=== PATIENT | female | born 1995 | race Caucasian/White ===

== ENCOUNTER 2016-10-26 22:20 | Inpatient (IN) | payer OTHER ==
[~2016-10-26] VITALS: Ht 162.6 cm; Wt 79.0 kg
[2016-10-26 22:44] VITALS: BP 110/75; PULSE 150; RESP 18; O2SAT 99
--- NOTE | 2016-10-26 23:54 | ED.REPORT ---
HPI-Rash / Abscess Date of Service Oct 26, 2016 ED Provider: Al Terrell MD A 21 year old female with a history of heroin substance abuse presents to the ED complaining of abscess on right butt cheek. The abscess just started to drain. The abscess is in area where she injects heroin. Her last Heroin use was 8 hours ago. She is interested in Suboxone. Nursing Notes Stated Complaint: SKIN RASH/ ABSCESS Chief Complaint: Skin Rash/Abscess Nursing Notes Reviewed: Yes Allergies: Coded Allergies: No Known Allergies (Unverified , 10/26/16) No Active Prescriptions or Reported Meds General Time Seen by MD: 23:53 Chief Complaint Abscess Hx Obtained From: Patient Arrived By: Walk-in Onset Occurred: Onset unknown Symptom Duration: Since onset Severity: Current: Severe Severity: Maximum: Severe Recent Healthcare: No recent doctor visit Similar Sx Previous: No Past Medical History Past Medical History She has used suboxone in the past. Reports no known medication allergies. Past Surgical History none reported. Social History Patient injects heroin. She does not inject into arms. Last use was 8 hours ago. She uses .4 per day. Last got out of [facility] 8 months ago. Ambulatory Status Independent Review of Systems Review of Systems Note: abscess on right butt cheek. Constitutional: Denies: Chills, Fever Complete sys rev & neg: except as marked. Physical Exam Initial Vital Signs Vital Signs (First) Date Time Temp Pulse Resp B/P Pulse Ox O2 Delivery O2 Flow Rate FiO2 10/26/16 22:44 37.0 150 18 110/75 99 Room Air Initial VS: Reviewed, Vital signs abnormal General/Constitutional: Awake, Alert Distress / Hydration: Positive: Distress moderate Appearance / Presentation: Positive: Pale Skin: Warm Patient has large, 6x10cm right buttock abscess with extension anteriorly into perineum. Patient is diaphoretic. Head / Eyes: Atraumatic, Normocephalic, PERRL, EOMI Respiratory / Chest: Atraumatic, Breath sounds NL, Breath sounds = bilat, No respiratory distress, No rales, No rhonchi, No wheezing Cardiovascular: Regular rhythm, Heart sounds NL, No gallop, No murmurs, No rubs Heart Rate / Rhythm: Positive: Tachycardia Upper Extremity / MS: No swelling, No edema Neurologic: Oriented X3, Speech NL Abdomen: No guarding, No rebound Interpretation & Diagnostics Lab Results Interpretation Result Diagram: 10/27/16 0040 10/27/16 0040 Test 10/27/16 00:40 White Blood Count 23.7th/mm3 (3.8-10.1) Red Blood Count 3.86mil/mm3 (3.90-5.20) Hemoglobin 10.9g/dL (12.0-15.6) Hematocrit 33.1% (35.0-46.0) Mean Corpuscular Volume 85.8fL (81-100) Mean Corpuscular Hemoglobin 28.2pg (27.0-35.0) Mean Corpuscular Hemoglobin Concent 32.9% (32.0-37.0) Red Cell Distribution Width 12.7% (12.3-15.4) Platelet Count 250bil/L (150-400) Neutrophils (%) (Auto) 78.0% (40-74) Lymphocytes (%) (Auto) 11.3% (14-46) Monocytes (%) (Auto) 8.9% (4-12) Eosinophils (%) (Auto) 0.8% (0-5) Basophils (%) (Auto) 0.2% (0-3) Sodium Level 135mEq/L (134-144) Potassium Level 4.3mEq/L (3.5-5.2) Chloride Level 98mEq/L (97-108) Carbon Dioxide Level 24mmol/L (18-29) Blood Urea Nitrogen 11mg/dL (6-20) Creatinine 0.50mg/dL (0.57-1.00) Estimat Glomerular Filtration Rate 221mL/min (>59) Glucose Level 136mg/dL (60-99) Calcium Level 9.3mg/dL (8.5-10.1) Magnesium Level 1.8mg/dL (1.6-2.6) Total Bilirubin 0.3mg/dL (0.0-1.2) Aspartate Amino Transf (AST/SGOT) 39U/L (0-50) Alanine Aminotransferase (ALT/SGPT) 40U/L (0-32) Alkaline Phosphatase 142U/L (25-150) Total Protein 6.8g/dL (6.4-8.4) Albumin 2.8g/dL (3.4-5.0) HCG Beta Subunit < 0.500mIU/mL Lab Results Interpretation: Elevated white blood count, mild anemia, upper limits normal lactic acid Procedure Notes: CT Pelvis with IV contrast IMPRESSION: Extensive inflammatory changes in the subcutaneous fat of the right buttock which extends anteriorly to involve the perineum on the right. No evidence of fluid collection. Signed by Carl Nova M.D., Radiologist 10/27/2016, 0350 Incision & Drainage Abscess Time: 02:14 Procedure Performed by: ED physician Procedures Incision & Drainage Abscess I & D Abscess: Drainage on 10x6cm butt abscess with indurated tender area with overlying ertythema. Time: 02:14 Procedure Performed by: ED physician Consent / Setup / Site Prep: Consent from patient Skin Preparation Agent: Shurclens Local Anesthesia: Lidocaine w epi 1% Procedural Sedation/Analgesia: Sedation: Versed Incised Abscess with Scalpel: #15 Pus Drained: Medium Irrigation: Yes Post-Procedure / Complications: Packing placed (plain), No complications, Condition improved, Tolerated procedure well, Patient stable Re-Eval/Medical Decision Med Decision/Clinical Course 21-year-old female who presents with evidence of sepsis related to a large abscess right buttocks. She was hydrated, cultured, and started on antibiotics . The abscess was drained, irrigated, and packed. Case was discussed with Dr. Harry Donovan and . Patient will be admitted to the hospitalist service with surgical consultation. Re-Evaluation/Progress #1: Time of Eval: 00:06 Re-Evaluation/Progress Note: Explained plan to treat abscess. Re-Evaluation/Progress #2: Time of Eval: 02:14 Re-Evaluation/Progress Note: Performed I&D on abscess. Explained plan for admission. Consultation #1: Referral / Consult Name: Kaushik Waldrop MD Consulted With: Hospitalist Call Returned at: 03:16 Note: Discussed patient case with Dr. Waldrop who wants to wait to see CT results before making a decision about the patient's admit. Consultation #2: Referral / Consult Name: Kaushik Waldrop MD Consulted With: Hospitalist Call Returned at: 03:48 Real Estate Firm Manager: Agrees with eval, Agrees with plan, Accepts admit Note: Examined CT results with Dr. Waldrop who accepts patient admit. Consultation #3: Referral / Consult Name: Harry Donovan MD Consulted With: Surgeon Real Estate Firm Manager: Will see patient, Agrees with eval, Agrees with plan Note: Discussed patient case with Dr. Donovan who will see the patient. Counseled Regarding: Diagnosis, Lab results, Need for follow-up Discharge & Departure Impression: Primary Impression: Gluteal abscess Additional Impressions: Heroin abuse Sepsis Sepsis type: sepsis due to unspecified organism Qualified Code: A41.9 - Sepsis, unspecified organism Disposition: ADMITTED TO HOSPITAL Referrals: NOPCP (PCP) Crit Care Except Billable Proc Time Spent: 30-74 minutes Services Performed: Patient management by me, Time spent at bedside, Reviewing test results, Reviewing imaging, Discussing patient care, Documentation in record Critical Care Notes: Patient with a large gluteal abscess/cellulitis and sepsis admitted to [facility] Herbert Attestation Portions of this note were transcribed by Arturo Perla. I, Dr. Terrell personally performed the history, physical exam and medical decision-making; I reviewed and confirmed the accuracy of the information in the transcribed note. Signed by: Herbert Ravi, 10/27/2016 and 0530. copies to: Al Leon MD Oct 26, 2016 23:54 Arturo Perla Oct 27, 2016 00:11
[2016-10-27] VITALS (9 sets, daily range): BP systolic 79–103; BP diastolic 30–58; PULSE 81–119; RESP 17–20; O2SAT 96–100
[2016-10-27] MEDS ORDERED: 0.9% Sodium Chloride 1,000 ML IV ONE ×2 (00:56→03:10)
[2016-10-27] MEDS ORDERED: Ondansetron 2 mg/mL 2 mL Inj IV PRN (01:00)
[2016-10-27 01:03] LABS: BASOPHILS % (AUTO) 0.2 % (0-3); EOSINOPHILS % (AUTO) 0.8 % (0-5); MONOCYTES % (AUTO) 8.9 % (4-12); Mean Corpuscular Hemoglobin 28.2 pg (27.0-35.0); Mean Corpuscular Volume 85.8 fL (81-100); Platelet Count 250 bil/L (150-400)
[2016-10-27 01:46] LABS: Magnesium 1.8 mg/dL (1.6-2.6)
[2016-10-27] MEDS ORDERED: Piperacillin-Tazo 3.375 Gm Inj 3.375 GM in Dextrose 5% Minibag Plus 50 ML IV ONE (03:10)
[2016-10-27] MEDS ORDERED: Vancomycin Dose per Pharmacist XX ONE (03:12)
[2016-10-27] MEDS ORDERED: Vancomycin Inj 1,500 MG in 0.9% Sodium Chloride 500 ML IV ONE (03:15)
[2016-10-27] MEDS ORDERED: Lactated Ringer's 1,000 ML IV ONE (04:00)
[2016-10-27] MEDS ORDERED: Alum-Mag Hydrox-Simeth 30 mL Suspension PO PRN (04:00)
[2016-10-27] MEDS ORDERED: Ondansetron 2 mg/mL 2 mL Inj IVPUSH PRN (04:00)
--- NOTE | 2016-10-27 04:11 | PCM.HPMED ---
Subjective Date of Service Oct 27, 2016 Primary Provider: Admitting Physician: Primary Care Physician: Karena Attending Physician: Chief Complaint: buttock infection History of Present Illness: 21yo lady with hx of im, iv heroin use 7-10 day hx of worsening pain, redness, swelling around upper buttock area at injection site. worse with pressure to the area. no relieving factors. last heroin use today ~6-8hours prior to admission hx of iv heroin use but lately only im. + chills. Review of Systems: Positive Review of Symptoms mentioned and elaborated on in HPI. Head: Denies H/A, trauma, loss of consciousness. Eyes: Denies visual loss, diplopia. Ears: Denies: deafness, tinnitis, discharge, pain Nose: Denies discharge, obstruction, epistaxis Mouth: Denies sores, gingival bleeding, jaw pain Neck: Denies stiffness, issues swallowing. Respiratory: Denies dyspnea, cough, sputum. Cardiovascular:Denies CP, palpitations, orthopnea, peripheral edema Gastrointestinal: Denies melena, abd pain, n/v/d Genitourinary: Denies dysuria, discharge. Skin: see hpi Musculoskeletal: see hpi Neuro: Denies numbness, tingling, weakness. Psyc: Currently denies feelings of anxiety, depression. Allergies Coded Allergies: No Known Allergies (Unverified , 10/26/16) Home Medications none PMH denies Surgical History denies Family History denies Social History Additional Information IM heroin use. hx of iv heroin use. Exam Vital Signs Vital Sign - Last Date Time Temp Pulse Resp B/P Pulse Ox O2 Delivery O2 Flow Rate FiO2 10/27/16 02:53 104 17 89/31 100 10/27/16 01:43 36.6 Room Air Intake and Output 10/26/16 10/26/16 10/27/16 Cumulative From/Thru 15:00 23:00 07:00 10/26/16 22:44 - 10/27/16 03:01 Intake Total 3000 ml 3000 ml Balance 3000 ml 3000 ml Intake IV Total 3000 ml 3000 ml Exam General: No acute distress. Awake, alert. Head: Normocephalic, atraumatic. Eyes: White sclera. Conjunctiva non-injected. Mouth & Throat: No Bleeding. No erythema, lesions, exudates visualized. Neck: No tender adenopathy. Trachea midline. Respiratory: Clear to auscultation bilaterally. Symmetric chest expansion. Regular work of breathing without use of accessory muscles. Cardiovascular: S1, S2. Regular rate and rhythm without murmurs, rubs or gallops. Pulses 2+ equal bilaterally. Abdomen: Normal bowel sounds x4 quadrants. Soft, non-tender, non-distended. Extremities: Intact. no joint effusions. no lower extremity tenderness, swelling , erythema or increased warmth. Skin: erythema, abscess, tenderness, L buttock. Neurologic: Awake, alert, oriented x3. No focal deficits. Psychiatric: Appropriate mood and affect. Cooperative. Lab and Diagnostics Result Diagram: 10/27/163910/27/1639 Assessment & Plan -- buttock, gluteal abscess -- sepsis secondary to above I and D done in er. blood, wound culture iv abx ivf. surgery evaluation -- IM Heroin abuse -- hx of iv heroin abuse -- hx of incarceration urine drug screen, hep c, hep b, hiv screening. manager social work discussed dangers of continued drug use. open to getting help going to rehab. -- f/e/n: npo -- dvt prophylaxis: differ in case of procedure today Dipso: Admit to inpt with expected length of stay > 2 midnights. Resuscitation Status: CPR: Attempt Resuscitation Kaushik Waldrop MD Oct 27, 2016 04:11
[2016-10-27] MEDS ORDERED: HYDROmorphone 1 mg/mL Inj IVPUSH PRN (04:30)
--- NOTE | 2016-10-27 05:10 | PCM.CONPHA ---
Subjective Date of Service: Oct 27, 2016 Requesting Provider: Kaushik Waldrop MD buttock infection Reason for Pharmacy Consult: Vancomycin Dosing Objective Vital Signs Date Time Temp Pulse Resp B/P Pulse Ox O2 Delivery O2 Flow Rate FiO2 10/27/16 04:26 37.1 99 17 86/33 99 Room Air 10/27/16 02:53 104 17 89/31 100 10/27/16 01:43 36.6 119 20 101/30 100 Room Air 10/26/16 22:44 37.0 150 18 110/75 99 Room Air Weight (Kilograms): 75 Height (Feet): 5 Height (Inches): 4 Test 10/27/16 00:40 10/27/16 04:45 White Blood Count 23.7th/mm3 (3.8-10.1) Red Blood Count 3.86mil/mm3 (3.90-5.20) Hemoglobin 10.9g/dL (12.0-15.6) Hematocrit 33.1% (35.0-46.0) Mean Corpuscular Volume 85.8fL (81-100) Mean Corpuscular Hemoglobin 28.2pg (27.0-35.0) Mean Corpuscular Hemoglobin Concent 32.9% (32.0-37.0) Red Cell Distribution Width 12.7% (12.3-15.4) Platelet Count 250bil/L (150-400) Neutrophils (%) (Auto) 78.0% (40-74) Lymphocytes (%) (Auto) 11.3% (14-46) Monocytes (%) (Auto) 8.9% (4-12) Eosinophils (%) (Auto) 0.8% (0-5) Basophils (%) (Auto) 0.2% (0-3) Sodium Level 135mEq/L (134-144) Potassium Level 4.3mEq/L (3.5-5.2) Chloride Level 98mEq/L (97-108) Carbon Dioxide Level 24mmol/L (18-29) Blood Urea Nitrogen 11mg/dL (6-20) Creatinine 0.50mg/dL (0.57-1.00) Estimat Glomerular Filtration Rate 221mL/min (>59) Glucose Level 136mg/dL (60-99) Calcium Level 9.3mg/dL (8.5-10.1) Magnesium Level 1.8mg/dL (1.6-2.6) Total Bilirubin 0.3mg/dL (0.0-1.2) Aspartate Amino Transf (AST/SGOT) 39U/L (0-50) Alanine Aminotransferase (ALT/SGPT) 40U/L (0-32) Alkaline Phosphatase 142U/L (25-150) Total Protein 6.8g/dL (6.4-8.4) Albumin 2.8g/dL (3.4-5.0) HCG Beta Subunit < 0.500mIU/mL Hold [place] Top Tube Received (Received) Assessment/Plan Assessment/Plan A: * Vancomycin dosing by pharmacy for 21 y/o woman with sepsis secondary to buttock abscess * She is also being started on Zosyn * Estimated CrCl for the patient is > 120 mL/min (Cockcroft & Gault) * Estimated vancomycin half-life is 7 hours and estimated Vd is 53 liters P: * Gave the patient a vancomycin loading dose of 1500 mg IV in the ED * Continue with vancomycin 1250 mg IV every 8 hours * Target a vancomycin trough range of 15 - 20 mcg/mL * Drawing a trough level prior to the fourth dose Thank you. Pharmacy will continue to follow this patient. Delfina Kenny, PharmD Delfina Kenny Oct 27, 2016 05:10
[2016-10-27] MEDS: Lactated Ringer's 1,000 ML IV SCH ×4 (06:07→22:31)
--- NOTE | 2016-10-27 08:24 | DRSVH ---
PROCEDURE: CT PELVIS WITH CONTRAST ([id number]) INDICATIONS: deep buttock abscess TECHNIQUE: After the administration of intravenous contrast, 5 mm thick sections acquired from the iliac crests to the symphysis. 5 mm coronal and sagittal reformats were acquired. For radiation dose reduction, the following was used: automated exposure control, adjustment of mA and/or kV according to patient size. COMPARISON: None. FINDINGS: Image quality: Excellent. Peritoneum and bowel: Bowel loops demonstrate normal wall thickness and caliber. No free fluid or a ir. Genitourinary: Bladder wall thickness is normal. No enlargement of uterus or ovaries identified. Nodes and vessels: No iliac, pelvic, or inguinal adenopathy by size criteria. Iliac vessels demonst rate normal size and enhancement. Bones/subcutaneous soft tissues: No suspicious bony lesions. The right buttock has increased strand ing and edematous change compared to the left extending from the level of the hip posteriorly and keith n the buttock and upper right thigh. There is thickening of the skin. The stranding extends medially to the level of the rectum. It extends laterally through the posterolateral aspect of the gluteus mus culature. It extends anteriorly across the perineum towards the labia on the right. No focal fluid co llection is identified to indicate abscess. A particle of air may be in the subcutaneous tissues on s eries 8 image 56. Miscellaneous: No inguinal hernias. IMPRESSION: 1. Extensive inflammatory changes of the right buttock which extends into the perineum and around the right side of the anus laterally to the lateral aspect of the hip superiorly to the level of the hip joint and inferiorly in the subcutaneous tissues of the upper right thigh. 2. No evidence of abscess collection is seen. A particle of air is seen in the subcutaneous tissues o f the buttocks. Dictated by: Dorian Stinson M.D. on 10/27/2016 at 8:07 Approved by: Dorian Stinson M.D. on 10/27/2016 at 8:22
[2016-10-27] MEDS: Vancomycin Dose per Pharmacist XX SCH (08:30)
--- NOTE | 2016-10-27 11:02 | NUR ---
Social Work Note: Screen Note Data& Assessment: EMR reviewed. Felix Barrett is a 21 year old female admitted on 10/27/2016 for right buttock abscess and sepsis. Pt has [employer] insurance coverage. Pt lives in [place] and is independent at baseline. Per MD in morning rounds, pt abscess is an infected injection site from IV heroin use. Pt was positive for opiates and amphetamines. SW to follow up with pt regarding CD assessment and resources when appropriate. SW to also follow ID evaluation and recommendations to r/o IV abx. No other discharge needs identified at this time. SW to continue to follow. Plan: Anticipated discharge home via pov when medically ready. SW to follow up with pt regarding CD assessment and resources when appropriate. SW to also follow ID evaluation and recommendations to r/o IV abx. No other discharge needs identified at this time. SW to continue to follow. ZHANE Morales
[2016-10-27] MEDS: Piperacillin-Tazo 3.375 Gm Inj 3.375 GM in Dextrose 5% Minibag Plus 50 ML IV SCH ×2 (11:34→18:48)
--- NOTE | 2016-10-27 12:11 | NUR ---
Social Work: Chemical Dependency Evaluation Current Situation: 21 year old female admitted for Right Buttock Abscess, sepsis. FELT COVERER met with pt at bedside to complete CD assessment. Pt is very irritable stating she is currently going through withdrawal and upset that she has not yet received Suboxone. History of CD Use: Pt states that she has been using opiates since she was 14 which started with abuse of prescription pain medication. Pt has been using IV heroin for approximately two years and reports that she "muscles" heroin. Pt reports that her last use was approximately 24 hours ago. Pt symptoms of withdrawal include "irritability" and flu-like symptoms. Pt has never participated in treatment and does not express interest in engaging in treatment after discharge. Pt denies any long periods of sobriety. MH History: Pt denies any mental health history or thoughts of suicide, homicide or auditory or visual hallucinations. Family History: Pt declined to provide information and stated "what does it matter?" Natural Supports: Pt states her mom is somewhat supportive. She does not identify anyone else as supports. Perceptions of Use/Consequences: Pt seems to understand that her hospitalization is directly related to her IV substance use however does not express outward desires to change post-discharge. Motivation for Treatment/Resources: Pt is not connected with any outpatient providers. Pt expressed interest in getting Suboxone during admission but not at time of discharge. Pt declined information from FELT COVERER about [facility] (Suboxone provider) [facility] and other community services. Pt declined a CDP bedside assessment through [facility]. Disposition: Anticipate pt to likely discharge home when medically stable; ID is following for abx recommendations; cultures are still pending. FELT COVERER to r/o intermediate accountant IV ABX for pt. FELT COVERER contact information provided to pt and informed her to call or request social work if she changed her mind about treatment. ZHANE Castro
[2016-10-27] MEDS: Vancomycin Inj 1,250 MG in 0.9% Sodium Chloride 250 ML IV SCH ×2 (14:07→22:12)
--- NOTE | 2016-10-27 14:12 | CONS ---
[address] [address] CONSULTATION REPORT PATIENT: LEA ROJAS : 1995 MR#: [id number] ADMIT: 10/27/2016 JOB ID: [id number] DATE OF SERVICE: 10/27/2016 SURGICAL CONSULTATION: CHIEF COMPLAINT: Right buttock pain. HISTORY OF PRESENT ILLNESS: The patient is a 21-year-old woman with an admitted history of muscling methamphetamine, who last injected into her right buttock approximately one month ago. Over the past 10 days, she developed increasing pain and swelling in the area of prior injection. She presented to the emergency department for evaluation. She denies fevers or chills. By the time she arrived in the emergency department, she had spontaneous drainage from the skin in the area. PAST MEDICAL HISTORY: 1. Methamphetamine and heroin abuse. 2. History of Suboxone use. PAST SURGICAL HISTORY: None. MEDICATIONS: None. ALLERGIES: No known drug allergies. SOCIAL HISTORY: Methamphetamine and heroin abuse. Denies alcohol use. She [facility]. FAMILY HISTORY: Noncontributory. REVIEW OF SYSTEMS: A 10-point review of systems is negative except as described in history of present illness. PHYSICAL EXAMINATION: Body mass index 28.9, temperature 36.6, pulse 95, blood pressure 79/39, saturation 98% on room air. General: She is resting in bed in no acute distress on her left side. HEENT: Sclerae are anicteric. Mucous membranes are moist. Neck: No lymphadenopathy. Chest is clear. Heart: Regular rate and rhythm. No murmurs. Skin: The right buttock was evaluated. The buttock is soft. There is minimal erythema over a 5 cm area around the incision site. The incision is packed with Nu-Gauze which is draining purulent fluid. There is no crepitus. There is minimal induration. Extremities: No edema. Neuro: No deficits. Psychiatric: Affect is appropriate. LABORATORIES: White blood cell count 22.7, hematocrit 33.1, platelets 250. Creatinine 0.50, glucose 136, lactate 1.1. IMAGING: CT of the pelvis shows inflammatory changes of the right buttock extending around the right side of the anus. There is no abscess seen. There is a small air bubble in the subcutaneous tissue of the buttocks. ASSESSMENT/PLAN: A 21-year-old woman status post incision and drainage of a right buttock abscess from heroin and/or methamphetamine injection. The collection appears to be adequately drained for now. She should undergo daily dressing changes, packing the area with 1/4-inch NuGauze and covering the scan with ABD pads. It is okay for her to shower. She can have a general diet. If it looks like she needs additional debridement, that will be done in the operating room. I will reassess for that tomorrow morning. Broad-spectrum antibiotics will be continued.
[2016-10-27] MEDS ORDERED: Lidocaine 2% 5 mL Topical Jelly TOPICAL PRN (15:00)
--- NOTE | 2016-10-27 15:40 | PCM.PNMED ---
Subjective Date of Service Oct 27, 2016 Subjective Patient's pain is ongoing problem and likely be worsened. She admits to using heroin up to every 3 hours whenever she can get it. Starting to go through withdrawals now. She denies chest pain, nausea vomiting. Right buttock pain is exacerbated. She states that she would like to quit using heroin. Exam Vital Signs Vital Sign - Last Date Time Temp Pulse Resp B/P Pulse Ox O2 Delivery O2 Flow Rate FiO2 10/27/16 12:27 36.8 95 18 98/58 96 Room Air Intake and Output 10/26/16 10/26/16 10/27/16 Cumulative From/Thru 15:00 23:00 07:00 10/26/16 22:44 - 10/27/16 06:25 Intake Total 4000 ml 4000 ml Output Total 800 ml 800 ml Balance 3200 ml 3200 ml Intake Oral 0 ml 0 ml IV Total 4000 ml 4000 ml Output Urine Total 800 ml 800 ml Exam General: Alert, Oriented X3, NAD Head: Normocephalic, atraumatic Eyes: RUDI, EOMI, no scleral Icterus Chest: clear to auscultation B/L, no wheezing rales or rhonchi Heart: Regular rate and rhythm. Normal S1, S2, no murmurs noted Abdomen: soft, non-tender. Bowel sounds are normoactive. No guarding or rebound. Extremities: no cyanosis, clubbing or edema. Right buttock bandage clean and dry IVs and Medications Medications Reviewed: Medications were reviewed in detail Lab and Diagnostics Result Diagram: 10/27/16 0040 10/27/16 0040 Assessment & Plan buttock, gluteal abscess secondary to IM heroin use -Continue vancomycin and Zosyn -Awaiting cultures -I and D done in er. -Surgery consulted Sepsis secondary to above: -Continue antibiotics as above IV drug use: -Counseled the patient on sensation of her wound. Patient would like to receive resources on addiction treatment and Suboxone therapy. -Case management is aware -Consider Suboxone therapy initiation -- IM Heroin abuse -- hx of iv heroin abuse -- hx of incarceration --urine drug screen, hep c, hep b, hiv screening. CODE STATUS: Full code DVT prophylaxis: Start Lovenox Disposition: Pending hospital course. Resuscitation Status: CPR: Attempt Resuscitation Jayro Zambrano DO Oct 27, 2016 15:40
[2016-10-27] MEDS: HYDROcodone-APAP 10-325 mg PO PRN ×2 (16:29→22:13)
[2016-10-27] MEDS: LORazepam 1 mg Tablet PO PRN ×2 (16:29→22:13)
--- NOTE | 2016-10-27 18:43 | NUR ---
Wound Dressing Change/Withdraw Dressing changed twice, packing gauze and ABD pad used. Dressing soaked through both times. Lidocain jelly ordered to make packing process less painful. Cardiac: Pt denies CP, tele SR 80s-90S, pt is hypotensive, SBP never > 100 this shift Resp: Pt denies dyspnea, Spo2 99% on RA GI/: Pt denies N/V/D Neuro: A&OX3, BOWMAN, Pt is sleeping often this AM. Right buttock is painful with movement Tordol is somewhat effective for pain. Pt has increased agitation when awake and states "I don't THINK I'm starting to withdraw, I AM WITHDRAWING". Pt is pleasant at baseline, ativan and hydrocodone ordered this afternoon.
[2016-10-27] MEDS: 0.9% Sodium Chloride 1,000 ML IV SCH (23:20)
[2016-10-28] VITALS (8 sets, daily range): BP systolic 105–126; BP diastolic 57–78; PULSE 68–105; RESP 16–20; O2SAT 97–99
[2016-10-28] MEDS: Piperacillin-Tazo 3.375 Gm Inj 3.375 GM in Dextrose 5% Minibag Plus 50 ML IV SCH ×3 (02:34→18:26)
[2016-10-28] MEDS: HYDROcodone-APAP 10-325 mg PO PRN ×4 (02:49→18:43)
[2016-10-28] MEDS ORDERED: Vancomycin Serum Trough XX ONE (04:00)
[2016-10-28 04:09] LABS: BASOPHILS % (AUTO) 0.3 % (0-3); EOSINOPHILS % (AUTO) 2.7 % (0-5); MONOCYTES % (AUTO) 6.5 % (4-12); Mean Corpuscular Hemoglobin 28.1 pg (27.0-35.0); Mean Corpuscular Volume 86.3 fL (81-100); NEUTROPHILS % (AUTO) 67.4 % (40-74); Platelet Count 226 bil/L (150-400)
--- NOTE | 2016-10-28 05:16 | PCM.PHAPRO ---
Progress Date of Service: Oct 28, 2016 buttock infection Vancomycin dosing by pharmacy for 21 y/o woman with sepsis secondary to buttock infection O: * The patient is receiving vancomycin 1250 mg IV every 8 hours * Vancomycin trough level of 14.4 mcg/mL prior to the fourth dose * SCr of 0.49 mg/dL on 10/28 * Cultures are pending A: * The trough is slightly lower than target, but levels will likely increase as the vancomycin reaches steady-state * SCr appears stable so far P: * Continue the current dose of vancomycin * Continue to target a trough range of 15 - 20 mcg/mL * Draw another trough level after several more doses Thank you. Pharmacy will continue to follow this patient. Delfina Kenny, PharmD Delfina Kenny Oct 28, 2016 05:16
[2016-10-28] MEDS: 0.9% Sodium Chloride 1,000 ML IV SCH ×3 (05:58→21:48)
[2016-10-28] MEDS: Vancomycin Inj 1,250 MG in 0.9% Sodium Chloride 250 ML IV SCH ×3 (05:58→21:48)
--- NOTE | 2016-10-28 06:39 | NUR ---
Dressing change Pt uncooperative with dressing change. Pt explained the need for full dressing change as wound is saturated with blood with a foul odor. Pt non complaint. Outer dressing, pt agreed to be changed but not the packing. Pt agitated and anxious over having a wound and feeling pain d/t it. Pain control given q4h as ordered PRN.
[2016-10-28] MEDS: Vancomycin Dose per Pharmacist XX SCH (08:30)
--- NOTE | 2016-10-28 10:08 | PROG NOTE ---
[address] [address] PROGRESS NOTE PATIENT: FELIX ROJAS : 1995 MR#: [id number] ADMIT: 10/27/2016 JOB ID: [id number] DATE: 10/28/2016 SUBJECTIVE: Felix is seen in followup. She had no acute events overnight. She is requesting additional pain medication. Her wound was packed last night. OBJECTIVE: Temperature 36.5, pulse 91, blood pressure 107/57, saturation 99% on room air. In general, she is resting in bed on her side, in no acute distress. Skin the right buttock wound was evaluated. There is no significant erythema or induration of the skin. The wound is packed with NuGauze, but is draining moderate to large amount of purulent and serosanguineous fluid. The outer dressing was changed. ASSESSMENT AND PLAN: A 21-year-old woman status post incision and drainage of a right buttock wound from heroin injection. She does not need additional surgical drainage. Her wound is draining adequately as it is. It should be packed daily at this point by nurses with NuGauze and covered with abdominal pads. Antibiotics will be continued.
[2016-10-28] MEDS: LORazepam 1 mg Tablet PO PRN ×2 (10:32→17:41)
--- NOTE | 2016-10-28 14:29 | PCM.PNMED ---
Subjective Date of Service Oct 28, 2016 Subjective Patient sleeping when I visit with her. She wakes up and is upset over her pain , though she does admit she would like to quit using heroin. No chest pain, nausea vomiting, diarrhea or constipation Exam Vital Signs Vital Sign - Last Date Time Temp Pulse Resp B/P Pulse Ox O2 Delivery O2 Flow Rate FiO2 10/28/16 12:27 37.3 85 18 105/60 98 Room Air Intake and Output 10/27/16 10/27/16 10/28/16 Cumulative From/Thru 15:00 23:00 07:00 10/26/16 22:44 - 10/28/16 06:45 Intake Total 2247 ml 2666 ml 8913 ml Output Total 100 ml 700 ml 1600 ml Balance 2147 ml 1966 ml 7313 ml Intake Oral 287 ml 893 ml 1180 ml IV Total 1960 ml 1773 ml 7733 ml Output Urine Total 100 ml 700 ml 1600 ml # Bowel Movements 0 0 Exam General: Alert, Oriented X3, NAD Head: Normocephalic, atraumatic Eyes: RUDI, EOMI, no scleral Icterus Chest: clear to auscultation B/L, no wheezing rales or rhonchi Heart: Regular rate and rhythm. Normal S1, S2, no murmurs noted Abdomen: soft, non-tender. Bowel sounds are normoactive. No guarding or rebound. Extremities: no cyanosis, clubbing or edema. Right buttock bandaged, clean and dry IVs and Medications Medications Reviewed: Medications were reviewed in detail Lab and Diagnostics Result Diagram: 10/28/165 10/28/16 0405 Assessment & Plan This is a 21-year-old heroin user who mostly uses IM heroin rather than intravenous presents with right buttock abscess, this spontaneously drained prior to admission, cultured in the emergency room. Surgery consulted. Started on vancomycin and Zosyn. buttock, gluteal abscess secondary to IM heroin use -Continue vancomycin and Zosyn -Awaiting cultures -I and D done in er. -Surgery consulted Sepsis secondary to above: -Continue antibiotics as above IV drug use: -Hepatitis C is reactive, discussed with the patient who already knows she has hepatitis C. -Counseled the patient on sensation of drugs. Patient would like to receive resources on addiction treatment and Suboxone therapy. -Case management is aware -Consider Suboxone therapy initiation -- IM Heroin abuse -- hx of iv heroin abuse -- hx of incarceration CODE STATUS: Full code DVT prophylaxis: Lovenox discontinued due to drop in hemoglobin Disposition: Pending hospital course. Resuscitation Status: CPR: Attempt Resuscitation Jayro Zambrano DO Oct 28, 2016 14:29
--- NOTE | 2016-10-28 18:34 | NUR ---
Pain/Drsg. Change/ABX Cardiac: Pt denies CP, tele SR 80s-90S. Resp: Pt denies SOB, Spo2 99% on RA. GI/: Pt denies N/V/D, reports her appetite is diminished. Neuro: A&OX3, BOWMAN, pt sleeps frequently throughout the day, pt requests to be woken to assess for pain med needs even if sleeping. Pt is pleasant and cooperative when not uncomfortable. Pt is very agitated and vocal when she is feeling the effects of withdraw from heroin and meth. Pt is having hot and cold flashes, goose bumps, and elevated heart rate. This evening pt wanted to leave AMA, forms were filled out and prescription is on chart. Pt calmed and agreed to stay for continued treatment. Pt continues to have pain from abcess. Pain is tolerable when pt is not moving. Addendum: 10/28/16 at 1911 by SIMEON RICKETTS RN Dressing Change changed dressing this shift, repacked wound per instructions, serosanguineous discharge, less puss than yesterday.
[2016-10-29] MEDS: HYDROcodone-APAP 10-325 mg PO PRN ×4 (01:49→20:54)
[2016-10-29] MEDS: Piperacillin-Tazo 3.375 Gm Inj 3.375 GM in Dextrose 5% Minibag Plus 50 ML IV SCH ×3 (01:51→20:54)
[2016-10-29] MEDS: LORazepam 1 mg Tablet PO PRN ×3 (01:51→20:54)
[2016-10-29] MEDS: 0.9% Sodium Chloride 1,000 ML IV SCH ×4 (02:00→22:00)
[2016-10-29 02:02] VITALS: BP 117/73; PULSE 77; RESP 16; O2SAT 98
[2016-10-29 02:53] LABS: BASOPHILS % (AUTO) 0.3 % (0-3); EOSINOPHILS % (AUTO) 3.7 % (0-5); MONOCYTES % (AUTO) 5.1 % (4-12); Mean Corpuscular Hemoglobin 28.2 pg (27.0-35.0); Mean Corpuscular Volume 85.8 fL (81-100); NEUTROPHILS % (AUTO) 46.9 % (40-74); Platelet Count 282 bil/L (150-400)
--- NOTE | 2016-10-29 05:10 | NUR ---
Right Hand Rash Pt has some sort of raised rash on right hand that is predominantly in between the fingers. The rash looks papular or like small serous filled blisters. When asked pt did say that the rash is itchy and painful. Will continue to monitor the site and make sure that the rash does not spread further. Currently using gloves as a contact precaution measure. Will make oncoming RN aware during shift change report.
[2016-10-29] MEDS: Vancomycin Inj 1,250 MG in 0.9% Sodium Chloride 250 ML IV SCH (05:47)
[2016-10-29 08:29] VITALS: BP 110/64; PULSE 85; RESP 16; O2SAT 97
[2016-10-29] MEDS: Vancomycin Dose per Pharmacist XX SCH (08:30)
--- NOTE | 2016-10-29 08:55 | PCM.PNSURG ---
Subjective Date of Service: Oct 29, 2016 Visit Information: Reason for Visit Right Buttock Abscess, Sepsis Surgery/Surgery Date Post-Op Day # Date of Admission: Oct 27, 2016 at 04:23 Hospital Day #3 Subjective: Nursing changing dressings. Objective Vital Sign- Last 8 Hours Date Time Temp Pulse Resp B/P Pulse Ox O2 Delivery O2 Flow Rate FiO2 10/29/16 08:29 36.8 85 16 110/64 97 Room Air 10/29/16 02:02 36.9 77 16 117/73 98 Room Air Intake and Output- Last 8 Hour 10/29/16 Cumulative From/Thru 07:00 10/26/16 22:44 - 10/29/16 06:37 Intake Total 2666 ml 37108 ml Output Total 1600 ml Balance 2666 ml 96279 ml Intake Oral 800 ml 2370 ml IV Total 1866 ml 9599 ml Output Urine Total 1600 ml # Voids 2 5 # Bowel Movements 0 General: Alert, Other (agitated, throwing objects from her breakfast tray across the room, screaming, inconsolable) SURGICAL WOUND : Wound Location/Description Right buttock wound is examined: Pack is removed. There was soupy soto liquid exudative material on the packing. There is no surrounding erythema. There is expected induration. Result Diagram: 10/29/16 0235 10/29/16 0235 Assessment & Plan Impression 1. Right buttock abscess. Ht #3, on antibiotics and receiving wound care by nursing. The wound appears to be healing and does not require any further surgical intervention at this time. 2. IV and IM methamphetamine and heroin use. Problems: Plan Continue dressing changes and antibiotics. Pain Management: Hydrocodone Resuscitation Status: CPR: Attempt Resuscitation Rock Calvo PA-C Oct 29, 2016 08:55
[2016-10-29 09:57] VITALS: PULSE 76
--- NOTE | 2016-10-29 10:41 | NUR ---
Social Work: Continued Discharge Planning SW was notified by patient's nurse that patient may be interested in [facility] assessment for inpatient treatment. SW attempted to meet with patient at bedside to discuss possible inpatient admission and [facility] assessment, but patient stated that she ws not ready to wake up at this time and requested that the psychiatric social worker supervisor leave. SW will continue to follow and assist patient throughout stay. Plan: Patient is likely to discharge home via POV with outpatient wound care. SW will continue to follow. Kristin Madrid LMSW, ASHLEY
--- NOTE | 2016-10-29 12:12 | NUR ---
Agitation Pt is very agitated this AM, she reports she is going through withdraws and not getting the meds she needs. Pt is refusing to have her dressing changed. Packing was removed by surgery this AM, wound is loosely dressed with ABD pad held in place by pt's underwear.
--- NOTE | 2016-10-29 16:06 | CONS ---
[address] [address] CONSULTATION REPORT PATIENT: LEA ROJAS : 1995 MR#: [id number] ADMIT: 10/27/2016 JOB ID: [id number] DATE OF SERVICE: 10/29/2016 REASON FOR CONSULTATION: Polymicrobial extensive right buttock abscess. I thank Dr. Jayro Zambrano for this timely consult. HISTORY OF THE PRESENT ILLNESS: The patient is a 21-year-old woman with longstanding history of intramuscular amphetamine and heroin injections. The patient has previously been treated for a left buttock infection during the a time when she was in snf. More recently, she has developed an abscess in her right buttock secondary to ongoing IM drug injections and presented to the emergency department and was admitted on October 27 with right buttock pain, spontaneous drainage and chills. She denied having fevers. She was admitted to this facility and was examined by one of the general surgeons who recommended dressings and antibiotics. Since then, the patient has been on the 2nd floor in the [facility] and she has been closely monitored and receiving a combination of vancomycin and Zosyn as empiric antibiotic therapy. History taking from the patient is very difficult. She states that she is currently going through withdrawal, with headache, malaise, shortness of breath, and extreme irritability. She is hostile to questions from the resident and from myself and basically refuses to answer most questions. She believed that she was promised she would receive Suboxone to treat her withdrawal which has not occurred, though she has received some other oral narcotics, and she is extremely angry and noncooperative at this point. PAST MEDICAL HISTORY: 1. Hepatitis C. 2. Ongoing intramuscular amphetamine and opiate drug use. 3. History of abscess in the left buttock. 4. Ongoing abscess, right buttock. SOCIAL HISTORY: The patient grew up in the [place]. Several months ago, she was released from snf, and she tells us she lives in a house with friends here somewhere in the area, but beyond that, she is not forthcoming with any details. She does smoke cigarettes and obviously uses illicit substances including amphetamines and opiates by the IM route. FAMILY HISTORY: She will not discuss the family history with us. REVIEW OF SYSTEMS: Basically, the patient refused to participate in the review of systems, though she does say she has a wide variety of symptoms, all due to withdrawal and does not really want to discuss it with us. She does state she has some fairly significant ongoing right buttock pain. PHYSICAL EXAMINATION: Restricted by the patient's reluctance to cooperate with the physical. She is awake and alert. Obviously depressed and angry. Temperature 36.8. She has been afebrile since admission. Pulse 76, respiratory rate 16, blood pressure 110/64. She is saturating well on room air. The patient has no obvious skin rash. No obvious abnormalities of the eyes or the lips. She declines to allow palpation or auscultation, so we do not have a whole lot to go on. She did reluctantly agree to let us examine the area of the right buttock, but when we attempted to take a look we encountered a great deal of drainage and some paper towels. She reported that she was not getting appropriate help and so she stuffed a bunch of paper towels into the area of the abscess and when we attempted to remove these she terminated the exam. There is no obvious skin rash. She appears to be neurologically intact. Other than that, I cannot say much about her physical. LABORATORIES: Include white count 24,000 when she came in, now 9000. Her creatinine 0.59 at this point. Her liver function tests are normal except for an ALT of 40. Albumin 2.8. Creatinine 0.5. Urine opiates and amphetamines are positive. Hep C is strongly positive. HIV negative. Blood cultures are fortunately negative. I discussed the wound cultures in detail with the micro lab. It appears that Strep viridans is growing and they think this may be a Strep intermedius. In addition, of beta strep may be present and it does appear that there is Eikenella rodens, though we will not know the final on these cultures until tomorrow. I personally reviewed the CT scan done in the ED. It shows extensive inflammatory changes of the right buttock which extends all the way to the perineum and almost all the way to the anus. IMPRESSION: This is an unfortunate young woman with really a very extensive and somewhat destructive- appearing right buttock abscess which involves what appears to be the whole of her buttock extending into the peritoneum and towards the anus as well. It is draining a thick purulent material onto the paper towels she has stuffed into her briefs and it is difficult to get a good exam because the patient is very angry, hostile, and uncooperative. I am extremely concerned about the nature of this polymicrobial infection. Strep intermedius is one of the so-called Strep family of organisms which is known to cause extensive tissue destruction. Eikenella is scarcely better and is commonly seen in human bite wounds and suggests that perhaps the patient was auto-innoculating the needle before injection. It is also commonly associated with severe tissue destruction. This situation is made worse by the patient's reluctance to allow proper wound changes as well as her ongoing threats to leave AMA. Because of the possibility that she may leave very soon, I think we should give her a single dose of dalbavancin to cover both the Strep milleri, as well as possible beta strep. This will be of no value though against the Eikenella, which is a relatively difficult organism to treat. For treatment of Eikenella, we reviewed some pertinent literature and believes Cipro would be an inexpensive choice with good activity against Eikenella. Also note that this patient is not . RECOMMENDATIONS: 1. Will discontinue vancomycin and Zosyn. 2. Give the patient a single dose of dalbavancin 1.5 g x1. 3. Absolutely no PICC line for this patient. 4. Cipro 500 b.i.d. with the plan to go for two weeks. 5. I would endeavor to keep the patient at least until tomorrow so we can see the final micro results and see if whether or not Eikenella is truly present and also request susceptibilities if it is. 6. Note that this consult took about 45 minutes even though we were not permitted to do a really careful physical exam, family history, review of systems, because of the patient's anger over her inadequate treatment of withdrawal.
--- NOTE | 2016-10-29 16:12 | PCM.PNMED ---
Subjective Date of Service Oct 29, 2016 Subjective Patient resting in bed comfortably when I visit with her. Her buttock abscess continues to be a source of pain. She is interested in going to inpatient rehabilitation. No nausea vomiting, diarrhea or constipation or fevers or chills. Exam Vital Signs Vital Sign - Last Date Time Temp Pulse Resp B/P Pulse Ox O2 Delivery O2 Flow Rate FiO2 10/29/16 09:57 76 10/29/16 08:29 36.8 16 110/64 97 Room Air Intake and Output 10/28/16 10/28/16 10/29/16 Cumulative From/Thru 15:00 23:00 07:00 10/26/16 22:44 - 10/29/16 06:37 Intake Total 390 ml 2666 ml 41178 ml Output Total 1600 ml Balance 390 ml 2666 ml 88374 ml Intake Oral 390 ml 800 ml 2370 ml IV Total 1866 ml 9599 ml Output Urine Total 1600 ml # Voids 3 2 5 # Bowel Movements 0 Exam General: Alert, Oriented X3, NAD Head: Normocephalic, atraumatic Eyes: RUDI, EOMI, no scleral Icterus Chest: clear to auscultation B/L, no wheezing rales or rhonchi Heart: Regular rate and rhythm. Normal S1, S2, no murmurs noted Abdomen: soft, non-tender. Bowel sounds are normoactive. No guarding or rebound. Extremities: no cyanosis, clubbing or edema. Right buttock bandage clean and dry IVs and Medications Medications Reviewed: Medications were reviewed in detail Lab and Diagnostics Result Diagram: 10/29/16 0235 10/29/16 0235 Assessment & Plan This is a 21-year-old heroin user who mostly uses IM heroin rather than intravenous presents with right buttock abscess, this spontaneously drained prior to admission, cultured in the emergency room. Surgery consulted. Started on vancomycin and Zosyn. buttock, gluteal abscess secondary to IM heroin use -Continue vancomycin and Zosyn -Awaiting cultures -I and D done in er. -Surgery consulted -ID consulted today, recommends waiting till culture finalized. Sepsis secondary to above: -Continue antibiotics as above IV drug use: -Hepatitis C is reactive, discussed with the patient who already knows she has hepatitis C. -Counseled the patient on sensation of drugs. Patient would like to receive resources on addiction treatment and Suboxone therapy. -Case management is aware -Consider Suboxone therapy initiation -- IM Heroin abuse -- hx of iv heroin abuse -- hx of incarceration CODE STATUS: Full code DVT prophylaxis: Lovenox discontinued due to drop in hemoglobin Disposition: Pending hospital course. Resuscitation Status: CPR: Attempt Resuscitation Jayro Zambrano DO Oct 29, 2016 16:12
[2016-10-29] MEDS ORDERED: Dalbavancin Inj 1,500 MG in Dextrose 5% 500 ML IV ONE (16:30)
[2016-10-29 17:07] VITALS: BP 102/63; PULSE 51; RESP 18; O2SAT 95
[2016-10-29] MEDS ORDERED: Dextrose 5% 250 ML IV ONE (18:48)
--- NOTE | 2016-10-29 19:45 | NUR ---
agitation Cardiac: pt denies chest pain at this time. Tele: SR/ST 80s-100s at rest and up to 120s with activity. Resp: pt denies SOB. SpO2 97% on RA GI/: pt denies N/V/D at this time. Neuro: AOx3, BOWMAN, Pt agitated for first half of shift, refusing dressing changes. Pt had a visitor who was only in the room for 4 min. following visit pt is much calmer and drowsy. Sign posted outside pt room for visitors to check in with nurse prior to entering. dressing finally changed including new packing.
[2016-10-29 20:30] VITALS: BP 127/84; PULSE 64; RESP 24; O2SAT 96
[2016-10-29 21:35] VITALS: BP 132/83; PULSE 56; RESP 17; O2SAT 98
--- NOTE | 2016-10-29 23:28 | NUR ---
Transfer of care/Agitation Pt transferred to [facility] room 1016 at start of shift, vitals checked and stable prior to transfer. Dressing on right buttock C/D/I. Report to [facility] RN. Pt given PRN [place] for 8/10 pain on buttock prior to transfer. Pt gathered her belongings and was transferred via wheelchair w/ Portia Drake RN and BOW MAKER. Pt was very agitated at first assessment and was cursing about several things, was given Ativan for agitation. Later pt was more pleasant and conversive w/ staff, also cooperative and understanding of transfer.
[2016-10-30] MEDS: HYDROcodone-APAP 10-325 mg PO PRN ×6 (01:24→23:45)
[2016-10-30] MEDS: Piperacillin-Tazo 3.375 Gm Inj 3.375 GM in Dextrose 5% Minibag Plus 50 ML IV SCH (01:26)
[2016-10-30] MEDS ORDERED: Vancomycin Serum Trough XX ONE (04:00)
[2016-10-30] MEDS: 0.9% Sodium Chloride 1,000 ML IV SCH ×3 (04:40→18:00)
[2016-10-30 05:45] VITALS: BP 119/64; PULSE 68; RESP 16; O2SAT 97
--- NOTE | 2016-10-30 05:51 | NUR ---
Transfer Patient arrived to unit at 2140 able to self transfer from wheelchair to bed. Patient became alarmed when security was called to lock up her belongings. This RN explained the hospital policy and suggested she remove Items she will frequently use (Make up bag, etc..) and lock up the rest. Patient was agreeable to this. Denial of pain upon arrival and pain managed effectively with PRNs through out shift.
--- NOTE | 2016-10-30 11:43 | PCM.PNMED ---
Subjective Date of Service Oct 30, 2016 Subjective Pt doing well. No complaints. She denies any fever. Exam Vital Signs Vital Sign - Last Date Time Temp Pulse Resp B/P Pulse Ox O2 Delivery O2 Flow Rate FiO2 10/30/16 05:45 36.7 68 16 119/64 97 Room Air Intake and Output 10/29/16 10/29/16 10/30/16 Cumulative From/Thru 15:00 23:00 07:00 10/26/16 22:44 - 10/30/16 05:44 Intake Total 2100 ml 800 ml 42262 ml Output Total 1600 ml Balance 2100 ml 800 ml 62889 ml Intake Oral 600 ml 800 ml 3770 ml IV Total 1500 ml 12257 ml Output Urine Total 1600 ml # Voids 3 3 11 # Bowel Movements 2 1 3 Exam GENERAL: NAD, Pt laying in bed comfortably CARDIAC: RRR; No M/R/G PULM: CTAB; No wheezes or rhonchi bilaterally NEURO: Alert and oriented x3; Following all commands PSYCH: Agitated IVs and Medications Medications Reviewed: Medications were reviewed in detail Lab and Diagnostics Result Diagram: 10/29/16 0235 10/29/16 0235 Assessment & Plan This is a 21-year-old heroin user who mostly uses IM heroin rather than intravenous presents with right buttock abscess, this spontaneously drained prior to admission, cultured in the emergency room. Surgery consulted. Started on vancomycin and Zosyn. 1. Buttock Abscess - Secondary to IM heroin use - Pt was initially on IV Vancomycin and Zosyn - ID was consulted and gave pt a single dose of Dalbavancin - Pts abscess was I&D'd in the ER - General Surgery was consulted and felt nothing more surgical needed to be done for patient except wound care - Start PO Augmentin per ID - CBC with diff in AM - NO PICC IN THIS PATIENT 2. Substance Abuse - Social work to see pt today and discuss inpatient treatment options 3. Disposition - Anticipate discharge in AM Resuscitation Status: CPR: Attempt Resuscitation Pedro Acuña MD Oct 30, 2016 11:43
--- NOTE | 2016-10-30 12:26 | PROG NOTE ---
[address] [address] PROGRESS NOTE PATIENT: LEA ROJAS : 1995 MR#: [id number] ADMIT: 10/27/2016 JOB ID: [id number] DATE: 10/30/2016 REASON FOR FOLLOWUP: Buttock abscess secondary to intramuscular heroin use. INTERVAL HISTORY: The patient reports she is feeling somewhat better, but she is very tired and would prefer not to be disturbed. She denies having fevers or chills. She is not aware of how severe of buttock pain because she is "not awake enough to tell." She states she is eating and drinking normally, though, and producing good amounts of urine. PHYSICAL EXAMINATION: Reveals an awake, alert, and uncooperative young woman. Temperature 36.7. She has been afebrile overnight. Pulse 68, respiratory rate 16, blood pressure 119/64, saturating quite well on room air. She is awake, alert, and angry. No skin rashes noted. Her sensorium is clear. We are not going to be allowed to examine the patient again today. As noted, vital signs show a temp 36.6, pulse 68, blood pressure 119/64. LABORATORY DATA: The labs from yesterday were essentially unremarkable. White count 9500. Hepatitis C serology positive. HIV negative. The cultures were discussed in detail with Micro this morning. She is growing an Eikenella corrodens, as well as Strep anginosus and three colonies of Staph aureus from this abscess. IMPRESSION: This is a young woman with a history of intramuscular drug use who presents with a very severe right buttock abscess secondary to intramuscular heroin and amphetamine use. She has grown three of the most destructive organisms available, including the Eikenella, Streptococcus anginosus group organism, and apparently light growth of Staphylococcus aureus. It is likely there are also some anaerobes present. The wound has strains spontaneously and apparently is improving, though the patient has declined physical examination. Her laboratories are reassuring. RECOMMENDATIONS: 1. This case discussed in person with Dr. Acuña. 2. Yesterday, I had indicated we would send her out on Cipro, but I think in retrospect that Augmentin might be a slightly better agent, so we would recommend 875 b.i.d. of Augmentin to be taken through November 08. The patient assures us she can obtain and will take oral antibiotics. 3. Dalbavancin is already on board. No additional IV antibiotics are needed. 4. The patient could be discharged at any time from an Infectious Disease point of view, and we are going to sign off.
[2016-10-30] MEDS: LORazepam 1 mg Tablet PO PRN ×2 (12:59→20:07)
[2016-10-30 15:15] VITALS: BP 114/63; PULSE 56; RESP 18; O2SAT 97
--- NOTE | 2016-10-30 15:58 | NUR ---
Social Work-continued d/c planning: Data& assessment:SW attempted to follow up with pt today to complete DARRION For pt to see CDP. orthopedically impaired teacher in room, not a good time. SW to follow up with pt later to discuss. SW will continue to follow. Plan:Pt to likely discharge home when medically stable. SW to follow up again regarding DARRION for CDP. SW will continue to follow. ZHANE Andino
--- NOTE | 2016-10-30 16:21 | PROG NOTE ---
[address] [address] PROGRESS NOTE PATIENT: LEA ROJAS : 1995 MR#: [id number] ADMIT: 10/27/2016 JOB ID: [id number] DATE: 10/30/2016 SUBJECTIVE: The patient is seen in followup. She feels better but still does describe her pain in the buttock at a 7/10. OBJECTIVE: Temperature 36.7, pulse 68, blood pressure 119/64, saturation 97% on room air. Skin. The right buttock wound was evaluated. The buttock is clean with no erythema. There is no significant induration. Packing is in place with some purulent drainage. The outer dressing was changed. LABORATORIES: White count is 9.5, hematocrit 28.9. Creatinine 0.59. Glucose 115. Micro culture shows Streptococcus anginosus, Eikenella, Staph aureus. ASSESSMENT AND PLAN: A 21-year-old woman status post incision and drainage of a right buttock abscess. She is doing well clinically, to the point where she is asking to go home today. From a purely surgical standpoint, I think she can be discharged to home today. She states that she cannot follow up in the wound clinic for dressing changes but will need to have materials so that she can do it herself or have one of her roommates do her dressing changes.
--- NOTE | 2016-10-30 16:59 | NUR ---
Agitation/outburst/dressing change Patient very irritable this afternoon yelling with angry outburst cussing at me. Patient yelling "every nurse doesn't know what the hell is going on and looks at me as I am stupid" patient asked to explain this and she says says I can go home and you say you dont know anything about this. I informed patient there was no discharge orders at this time so she became angry and was threatening to leave against medical advice but when informed no prescriptions are giving if you leave against medical advice=ice she changed her mind. Dressing changed as order written q 24 hrs but patient refused to have packing removed and new packing replaced so only outer dressing replaced.
[2016-10-30] MEDS: Amoxicillin-Clav 875-125 mg Tablet PO SCH (20:07)
[2016-10-30 20:15] VITALS: BP 115/63; PULSE 64; RESP 16; O2SAT 97
[2016-10-31] MEDS: 0.9% Sodium Chloride 1,000 ML IV SCH ×2 (00:40→07:20)
--- NOTE | 2016-10-31 02:28 | NUR ---
Pain Pain controlled with po analgesia.VSS.I&O qs.Dressing CDI.Sleeping soundly thus far and resting comfortably.Will cont. to monitor.
[2016-10-31] MEDS: HYDROcodone-APAP 10-325 mg PO PRN ×2 (04:17→09:11)
[2016-10-31] MEDS: LORazepam 1 mg Tablet PO PRN (04:17)
[2016-10-31 04:33] VITALS: BP 109/65; PULSE 54; RESP 16; O2SAT 98
[2016-10-31 06:08] LABS: BASOPHILS % (AUTO) 0.3 % (0-3); EOSINOPHILS % (AUTO) 4.2 % (0-5); MONOCYTES % (AUTO) 7.8 % (4-12); Mean Corpuscular Hemoglobin 27.6 pg (27.0-35.0); Mean Corpuscular Volume 85.1 fL (81-100); NEUTROPHILS % (AUTO) 47.1 % (40-74); Platelet Count 356 bil/L (150-400)
[2016-10-31] MEDS ORDERED: HYDR-3740 PO (08:30)
[2016-10-31] MEDS ORDERED: AGM875T PO (08:30)
--- NOTE | 2016-10-31 08:31 | PCM.DIMED ---
Discharge Instructions Date of Service Oct 31, 2016 Dates of Hospitalization Oct 27, 2016 at 04:23 Discharge Diagnosis Discharge Diagnosis 1. Buttock Abscess with Cellulitis 2. IV Drug Abuse Diet No restrictions Activity No restrictions Call your provider Fever or Chills, Shortness of breath, Bleeding, Chest pain, Vomitting, Excessive diarrhea, Weakness (unilateral) Patient Instructions Follow-up with PCP in: 1 week (Pt to call for an appointment) Pedro Acuña MD Oct 31, 2016 08:31
[2016-10-31] MEDS: Amoxicillin-Clav 875-125 mg Tablet PO SCH (09:10)
--- NOTE | 2016-10-31 10:10 | NUR ---
Social Work-discharge: Data:EMR Reviewed. Pt is on day 4 of hospitalization for right buttock abscess per H&P. Pt is medically stable for discharge. Pt declining all resources from . Pt has been up independent in her room. No discharge needs identified. All updated and agreeable to plan. Assessment;Pt who is independent at baseline. Plan:Pt to discharge home today via POv. No discharge needs identified. All updated and agreeable to plan. ZHANE Andino
--- NOTE | 2016-10-31 11:18 | NUR ---
Discharge Pt DC home with friends via private vehicle. Pt was witness applying gauze to clean gluteal wound per instructions and was given additional supplies to continue at home. She will schedule follow up appointment on her own. Pt verbalized understanding and need to take full course of antibiotics; dose given this morning. Pain adequately controlled with PO Hydrocodone and was medicated prior to DC. Belongings obtained for locked cabinet.
--- NOTE | 2016-10-31 13:36 | PCM.DC.MED ---
Discharge Summary Date of Service Oct 31, 2016 Dates of Hospitalization Date of Hospital Admission Oct 27, 2016 at 04:23 Date of Discharge: Oct 31, 2016 Providers: Admitting Physician: Kaushik Waldrop MD Primary Care Physician: Nopcp Attending Physician: Kaushik Waldrop MD Diagnosis at Time of Discharge Diagnosis at Time of Discharge 1. Buttock Abscess with Cellulitis 2. IV Drug Abuse Consultations 1. Infectious Disease 2. General Surgery Brief History 21yo lady with hx of im, iv heroin use 7-10 day hx of worsening pain, redness, swelling around upper buttock area at injection site. worse with pressure to the area. no relieving factors. last heroin use today ~6-8hours prior to admission hx of iv heroin use but lately only im. + chills. Hospital Course This is a 21-year-old heroin user who mostly uses IM heroin rather than intravenous presents with right buttock abscess, this spontaneously drained prior to admission, cultured in the emergency room. Surgery consulted. Started on vancomycin and Zosyn. 1. Buttock Abscess - Secondary to IM heroin use - Pt was initially on IV Vancomycin and Zosyn - ID was consulted and gave pt a single dose of Dalbavancin - Pts abscess was I&D'd in the ER - General Surgery was consulted and felt nothing more surgical needed to be done for patient except wound care - Start PO Augmentin for 10 days per ID - Pt is discharged to home in good/stable condition and is to follow-up with wound care as an outpatient 2. Substance Abuse - Pt is not interested in stopping her drug use Exam Vital Signs (Last) Date Time Temp Pulse Resp B/P Pulse Ox O2 Delivery O2 Flow Rate FiO2 10/31/16 04:33 36.5 54 16 109/65 98 Room Air Exam GENERAL: NAD, Pt laying in bed comfortably HEENT: AT/NC, PERRLA, EOMI, Mucus Membranes are moist CARDIAC: RRR; No M/R/G PULM: CTAB; No wheezes or rhonchi bilaterally SKIN: Warm, Dry, [place], and Intact NEURO: Alert and oriented x3; Following all commands PSYCH: Normal mood and affect Test 10/27/16 00:40 10/27/16 04:45 10/27/16 06:25 10/27/16 08:00 Magnesium Level 1.8mg/dL (1.6-2.6) Total Bilirubin 0.3mg/dL (0.0-1.2) Aspartate Amino Transf (AST/SGOT) 39U/L (0-50) Alanine Aminotransferase (ALT/SGPT) 40U/L (0-32) Alkaline Phosphatase 142U/L (25-150) Total Protein 6.8g/dL (6.4-8.4) Albumin 2.8g/dL (3.4-5.0) HCG Beta Subunit < 0.500mIU/mL Lactic Acid Level 1.1mmol/L (0.4-2.0) Hold [place] Top Tube Received (Received) Urine Opiates Screen Positive Urine Methadone Screen Negative Urine Barbiturates Screen Negative Urine Amphetamines Screen Positive Urine Benzodiazepines Screen Negative Urine Cocaine Metabolite Screen Negative Urine Cannabinoids Screen Negative Hepatitis B Surface Antigen Negative (Negative) Hepatitis C Antibody >11.0s/co ratio HIV (1&2) Ag and Ab, 4th Generation Non reactive (Non Reactive) Test 10/28/16 04:05 10/29/16 02:35 10/31/16 05:40 Vancomycin Level Trough 14.4mcg/mL Sodium Level 142mEq/L (134-144) Potassium Level 4.2mEq/L (3.5-5.2) Chloride Level 108mEq/L (97-108) Carbon Dioxide Level 22mmol/L (18-29) Blood Urea Nitrogen 8mg/dL (6-20) Creatinine 0.59mg/dL (0.57-1.00) Estimat Glomerular Filtration Rate 183mL/min (>59) Glucose Level 115mg/dL (60-99) Calcium Level 8.4mg/dL (8.5-10.1) White Blood Count 9.6th/mm3 (3.8-10.1) Red Blood Count 3.69mil/mm3 (3.90-5.20) Hemoglobin 10.2g/dL (12.0-15.6) Hematocrit 31.4% (35.0-46.0) Mean Corpuscular Volume 85.1fL (81-100) Mean Corpuscular Hemoglobin 27.6pg (27.0-35.0) Mean Corpuscular Hemoglobin Concent 32.5% (32.0-37.0) Red Cell Distribution Width 13.0% (12.3-15.4) Platelet Count 356bil/L (150-400) Neutrophils (%) (Auto) 47.1% (40-74) Lymphocytes (%) (Auto) 39.2% (14-46) Monocytes (%) (Auto) 7.8% (4-12) Eosinophils (%) (Auto) 4.2% (0-5) Basophils (%) (Auto) 0.3% (0-3) Discharge Medications Discharge Medications Amoxicillin/Clav K 875-125 mg (Amoxicillin/Clav K 875-125 mg) 875 Mg Tab 1 TAB PO BID Prescribed by: PEDRO BUTLER MD As needed Hydrocodone-Acetaminophen 10-325 mg (Hydrocodone-Acetaminophen 10-325 mg) 1 Each Tablet 1 TABLET PO Q4H PRN PRN For Pain Prescribed by: PEDRO BUTLER MD Followup Plan Discharge Diet: No restrictions Discharge Activity: No restrictions Follow-up with PCP in: 1 week (Pt to call for an appointment) Time spent 20 minutes Pedro Butler MD Oct 31, 2016 13:36
== END 2016-10-31 10:20 | disposition home or self-care (01) | DRG 603 ==
LOC: SED 22:20 → PCC 10-27 04:23 → OSC 10-29 20:24
PROVIDERS: ADMIT Family Medicine; ATTEND Family Medicine
PROC: 0J990ZX Drainage of Buttock Subcutaneous Tissue and Fascia, Open Approach, Diagnostic (ICD-10-PCS; principal; 2016-10-27)
DX: L02.31 Cutaneous abscess of buttock (principal); F11.23 Opioid dependence with withdrawal; R71.0 Precipitous drop in hematocrit; L03.317 Cellulitis of buttock; B19.20 Unspecified viral hepatitis C without hepatic coma; F17.200 Nicotine dependence, unspecified, uncomplicated; B95.61 Methicillin susceptible Staphylococcus aureus infection as the cause of diseases classified elsewhere